=== PATIENT | female | born 1980 | race Two or more races ===

== ENCOUNTER 2023-06-13 13:58 | Emergency (ER) | payer SELFPAY ==
[2023-06-13 14:04] VITALS: BP 130/81; PULSE 89; RESP 20; TEMP 36.8; O2SAT 96; BMI 30.9
--- NOTE | 2023-06-13 14:15 | XR_ITS ---
The [address] [address] Patient Name: NANCY MAHAJAN MRN: [id number] date: 1980 Sex: F Assigned Patient Location: ED.MAIN Current Patient Location: ED.MAIN Accession/Order Number: [id number] Exam Date: 06/13/2023 14:32 Report Date: 06/13/2023 14:57 At the request of: MIHAI SIFUENTES Procedure: XR toe RT min 2V PROCEDURE: XR toe RT min 2V HISTORY: right fifth toe injury ; fifth toe pain, abrasion COMPARISON: None. FINDINGS: BONES:No fracture, acute abnormality, or significant arthropathy. SOFT TISSUES:No visible soft tissue swelling. EFFUSION:None visible. OTHER: Negative. XR/XR toe RT min 2V IMPRESSION: 1. No acute bone abnormality or suspicious findings. Electronically authenticated by: HAY HUDDLESTON Date: 06/13/2023 14:57
--- NOTE | 2023-06-13 14:45 | ED.LOWEXI1 ---
Documented by User: RYANN Roa 06/13/23 14:48 HPI - Extremity Injury (Lower) General Chief Complaint: Extremity Injury, Lower Stated Complaint: LOWER EXTREMITY PAIN RIGHT PINKY TOE Time Seen by Provider: 06/13/23 14:06 Source: patient Mode of arrival: walk-in Limitations: no limitations History of Present Illness HPI Narrative: patient is a 42-year-old female who presents to the emergency department for injury to the right 5th toe. She states at work every day she runs over her 5th toe with the wheels of trays that she pushes around. she wears tennis shoes that have cloth on the top, she was noted to have a minimal abrasion to the dorsum of the right 5th toe. She is able to ambulate. No concern for . No medications taken prior to arrival. Related Data Previous Rx's Medication Instructions Recorded naproxen sodium 550 mg tablet 550 mg PO BID PRN pain #10 tabs 06/13/23 Allergies Allergy/AdvReac Type Severity Reaction Status Date / Time No Known Drug Allergies Allergy Verified 06/13/23 14:06 Review of Systems ROS Constitutional Denies: fever or chills Ears, nose, mouth, and throat Denies: throat pain Respiratory Denies: shortness of breath or cough Gastrointestinal Denies: nausea or vomiting Musculoskeletal Denies: back pain Integumentary/Breast Denies: rash Endocrine Denies: excessive urination Hematologic/Lymphatic Denies: easy bruising Exam Narrative Exam Narrative: Gen.: Awake, alert, in no distress Head: Normocephalic, atraumatic ENT: Moist mucous membranes Respiratory: No respiratory distress Extremities: Moves extremities equally, right 5th toe with minimal ecchymosis noted to the dorsum of the toe and a small abrasion. No lacerations or bleeding. No circumferential swelling or erythema. 2+ radial DP pulse. Normal flexion and extension of the toes. Psych: Normal mood and affect Neuro: No focal neuro deficit Skin: Warm, dry Constitutional Vital Signs, click to edit/add: Last Vital Signs Temp 98.3 F 06/13/23 14:04 Pulse 89 06/13/23 14:04 Resp 20 06/13/23 14:04 BP 130/81 06/13/23 14:04 Pulse Ox 96 06/13/23 14:04 O2 Del Method Room Air 06/13/23 14:04 Course Vital Signs Vital signs: Vital Signs Temperature 98.3 F 06/13/23 14:04 Pulse Rate 89 06/13/23 14:04 Respiratory Rate 20 06/13/23 14:04 Blood Pressure 130/81 06/13/23 14:04 Pulse Oximetry 96 06/13/23 14:04 Oxygen Delivery Method Room Air 06/13/23 14:04 Temperature 98.3 F 06/13/23 14:04 Pulse Rate 89 06/13/23 14:04 Respiratory Rate 20 06/13/23 14:04 Blood Pressure 130/81 06/13/23 14:04 Pulse Oximetry 96 06/13/23 14:04 Oxygen Delivery Method Room Air 06/13/23 14:04 MDM - Extremity Injury (Lower) MDM Narrative Medical decision making narrative: x-rays with no evidence of acute process. Bacitracin applied to the abrasion with dressing. NSAIDs given for home. Patient does not wish to file Workmen's Comp. at this time. Rest, ice, elevate. Follow-up with PCP and return to the Emergency Room if symptoms change or worsen. Medical Records Attestation: I reviewed the patient's medical records. Imaging Data XR toe: Attestation: I have reviewed the pertinent imaging results. Discharge Plan Discharge Chief Complaint: Extremity Injury, Lower Clinical Impression: Contusion of fifth toe, right Patient Disposition: Home, Self-Care Time of Disposition Decision: 14:44 Condition: Good Prescriptions / Home Meds: New naproxen sodium 550 mg tablet 550 mg PO BID PRN (Reason: pain) Qty: 10 0RF Instructions: Foot Contusion (ED) Stand Alone Forms: Portal Instructions Referrals: Physician,Non-Staff, [Primary Care Provider] - 1 week Discharge Date/Time: 06/13/23 15:11 Documented by User: Jose Ortiz MD 06/13/23 19:25 HPI - Extremity Injury (Lower) General Chief Complaint: Extremity Injury, Lower Stated Complaint: LOWER EXTREMITY PAIN RIGHT PINKY TOE Time Seen by Provider: 06/13/23 14:06 Related Data Previous Rx's Medication Instructions Recorded naproxen sodium 550 mg tablet 550 mg PO BID PRN pain #10 tabs 06/13/23 Allergies Allergy/AdvReac Type Severity Reaction Status Date / Time No Known Drug Allergies Allergy Verified 06/13/23 14:06 Exam Constitutional Vital Signs, click to edit/add: Last Vital Signs Temp 98.3 F 06/13/23 14:04 Pulse 89 06/13/23 14:04 Resp 20 06/13/23 14:04 BP 130/81 06/13/23 14:04 Pulse Ox 96 06/13/23 14:04 O2 Del Method Room Air 06/13/23 14:04 Course Vital Signs Vital signs: Vital Signs Temperature 98.3 F 06/13/23 14:04 Pulse Rate 89 06/13/23 14:04 Respiratory Rate 20 06/13/23 14:04 Blood Pressure 130/81 06/13/23 14:04 Pulse Oximetry 96 06/13/23 14:04 Oxygen Delivery Method Room Air 06/13/23 14:04 Temperature 98.3 F 06/13/23 14:04 Pulse Rate 89 06/13/23 14:04 Respiratory Rate 20 06/13/23 14:04 Blood Pressure 130/81 06/13/23 14:04 Pulse Oximetry 96 06/13/23 14:04 Oxygen Delivery Method Room Air 06/13/23 14:04 MDM - Extremity Injury (Lower) MDM Narrative Medical decision making narrative: x-rays with no evidence of acute process. Bacitracin applied to the abrasion with dressing. NSAIDs given for home. Patient does not wish to file Workmen's Comp. at this time. Rest, ice, elevate. Follow-up with PCP and return to the Emergency Room if symptoms change or worsen. I, Dr Ortiz, have reviewed the above progress note and course of action in the ER; agree with the above. I have personally seen and evaluated this patient, gone over history and physical, and discussed disposition and treatment plan with the patient. Discharge Plan Discharge Chief Complaint: Extremity Injury, Lower Clinical Impression: Contusion of fifth toe, right Patient Disposition: Home, Self-Care Time of Disposition Decision: 14:44 Condition: Good Prescriptions / Home Meds: New naproxen sodium 550 mg tablet 550 mg PO BID PRN (Reason: pain) Qty: 10 0RF Instructions: Foot Contusion (ED) Stand Alone Forms: Portal Instructions Referrals: Physician,Non-Staff, MD [Primary Care Provider] - 1 week Discharge Date/Time: 06/13/23 15:11
[2023-06-13] MEDS: BACITRACIN 0.9 GM PACKET 1 PACKET TOPICAL (15:03)
== END 2023-06-13 15:11 | disposition home or self-care (01) ==
PROVIDERS: Emergency Provider Emergency Medicine
DX: S90.121A Contusion of right lesser toe(s) without damage to nail, initial encounter (principal); W22.8XXA Striking against or struck by other objects, initial encounter
CPT/HCPCS: 73660; 99283